=== PATIENT | female | born 1965 | race Caucasian/White ===

== ENCOUNTER 2016-12-28 18:04 | Emergency (ER) | payer OTHER ==
[~2016-12-28] VITALS: Ht 171.4 cm; Wt 99.8 kg
--- NOTE | 2016-12-28 18:31 | ED GI/GU/ABDOMINAL COMPLAINT ---
History of Present Illness General Chief Complaint: Nausea, Vomiting, Diarrhea Stated Complaint: PT HAD DIARRHEA ALL NIGHT Source: patient Exam Limitations: no limitations Allergies Coded Allergies: Penicillins (RASH 12/28/16) Triage Note: 51 YEAR OLD FEMALE STATES THAT SHE HAS HAS DIARHEA SINCE LAST PM. KIDS WERE STICK WITH STOMACH BUG LAST WEEK. TAKING ZOFRAN FOR NAUSEA Triage Nurses Notes Reviewed? yes ? n Is pt currently ? No Onset: Abrupt Duration: hour(s): (24), constant, continues in ED Timing: recent history Quality/Severity: cramping, moderate, severe Location: generalized abdomen No Modifying Factors: none HPI: 51-year-old female comes into emergency room complains of abdominal pain and diarrhea. Symptoms have been going on for the past 24 hours. Patient has had greater than 10 episodes of watery loose stool she reports. Some generalized abdominal pain especially in the lower abdomen. Denies any vomiting but associated nausea. She reports that her kids were sick with similar symptoms. Denies any prior abdominal surgeries. (ADRIÁN VALERIO) Vital Signs & Intake/Output Vital Signs & Intake/Output Vital Signs Date Time Temp Pulse Resp B/P B/P Pulse O2 O2 Flow FiO2 Mean Ox Delivery Rate 12/28 2244 98.0 88 18 140/90 98 Room Air 12/28 1931 Room Air 12/28 1807 98.1 124 18 148/97 99 Room Air ED Intake and Output 12/29 0000 12/28 1200 Intake Total 1000 Output Total Balance 1000 Intake, IV 1000 Patient 220 lb Weight Reconcile Medications Dicyclomine Hydrochloride (Bentyl) 10 MG CAPSULE 2 CAP PO TID abd pain Dicyclomine Hydrochloride (Bentyl) 10 MG CAPSULE 1 CAP PO TID PRN PAIN Loperamide HCl (Imodium A-D) 2 MG CAPSULE 2 CAP PO ONCE DIARRHEA (Reported) Ondansetron (Zofran Odt) 4 MG TAB.RAPDIS 1 TAB SL TID nausea Ondansetron (Zofran Odt) 4 MG TAB.RAPDIS 1 TAB SL TID PRN NAUSEA Ondansetron HCl (Zofran) 4 MG TABLET 1 TAB PO ONCE N/V (Reported) (ESTHER LO) Past History Travel History Traveled to [place] past 21 day No Medical History Any Pertinent Medical History? see below for history Neurological: NONE EENT: NONE Cardiovascular: NONE Respiratory: NONE Gastrointestinal: NONE Hepatic: NONE Renal: NONE Musculoskeletal: NONE Psychiatric: NONE Endocrine: NONE Blood Disorders: NONE BRICKLAYER APPRENTICE/Reproductive: NONE Surgical History Surgical History: non-contributory Psychosocial History Who do you live with Spouse What is your primary language Kuwaiti Tobacco Use: Never used ETOH Use: denies use Illicit Drug Use: denies illicit drug use Family History Hx Contributory? No (ADRIÁN VALERIO) Review of Systems Review of Systems Constitutional: Reports: no symptoms. EENTM: Reports: no symptoms. Respiratory: Reports: no symptoms. Cardiovascular: Reports: no symptoms. GI: Reports: see HPI. Genitourinary: Reports: see HPI. Musculoskeletal: Reports: no symptoms. Skin: Reports: no symptoms. Neurological/Psychological: Reports: no symptoms. Hematologic/Endocrine: Reports: no symptoms. Immunologic/Allergic: Reports: no symptoms. All Other Systems: Reviewed and Negative (ADRIÁN VALERIO) Physical Exam Physical Exam General Appearance: well developed/nourished, alert, awake, mild distress Head: atraumatic, normal appearance Eyes: Bilateral: normal appearance, EOMI. Ears, Nose, Throat, Mouth: hearing grossly normal, moist mucous membrane Neck: normal inspection, full range of motion Respiratory: normal breath sounds, no respiratory distress Cardiovascular: regular rate/rhythm, tachycardia Gastrointestinal: soft, tenderness Back: normal inspection Extremities: normal range of motion Neurologic/Psych: awake, alert, oriented x 3, normal gait, normal mood/affect Skin: intact, normal color Core Measures ACS in differential dx? No Severe Sepsis Present: No Septic Shock Present: No (ADRIÁN VALERIO) Progress Differential Diagnosis: appendicitis, biliary colic, cholecystitis, diverticulitis, gastritis, hernia, ovarian cyst, ovarian torsion, pancreatitis, PID/cervicitis, peptic ulcer, PUD/GERD, perforated viscous, SBO, threatened AB, UTI/pyelo Initial ED EKG: normal intervals, normal p-waves, normal sinus rhythm, rate (97) , nonspecific ST T wave chg (ADRIÁN VALERIO) Plan of Care: Orders Procedure Date/time Status LACTIC ACID 12/29 2147 Complete TROPONIN LEVEL 12/28 1899 Complete HUMAN BETA HCG SCREEN 12/28 1899 Complete LACTIC ACID 12/29 1847 Complete CULTURE,STOOL 04/30 1841 Active C.DIFFICILE 12/28 1840 Active LIPASE 12/28 1829 Complete COMPREHENSIVE METABOLIC PANEL 12/28 1829 Complete CBC WITHOUT DIFFERENTIAL 12/28 1829 Complete EKG 12/28 1829 Active Laboratory Tests 12/28/16 2150: Lactic Acid 0.8 12/28/161899: Lactic Acid 2.3 H 12/28/161899: Anion Gap 18 H, Estimated GFR > 60, BUN/Creatinine Ratio 15.7, Glucose 106 H, Calcium 8.5, Total Bilirubin 0.6, AST 34, ALT 39, Alkaline Phosphatase 61, Troponin I < 0.01, Total Protein 8.1, Albumin 4.5, Globulin 3.6, Albumin/ Globulin Ratio 1.3, Lipase 43, Total Beta HCG NEGATIVE, CBC w Diff NO MAN DIFF REQ, RBC 4.93, MCV 78.1 L, MCH 26.5 L, RDW 14.1, MPV 9.6, Gran % 83.7 H, Lymphocytes % 9.3 L, Monocytes % 6.7, Eosinophils % 0.2, Basophils % 0.1, Absolute Granulocytes 6.1, Absolute Lymphocytes 0.7 L, Absolute Monocytes 0.5, Absolute Eosinophils 0, Absolute Basophils 0, PUBS MCHC 33.9 12/28/161830: Troponin I Cancelled, Total Beta HCG Cancelled 12/28/161829: Urine Color Cancelled, Urine Clarity Cancelled, Urine pH Cancelled, Ur Specific [place] Cancelled, Urine Protein Cancelled, Urine Ketones Cancelled, Urine Nitrite Cancelled, Urine Bilirubin Cancelled, Urine Urobilinogen Cancelled, Ur Leukocyte Esterase Cancelled, Ur Microscopic Cancelled, Urine Hemoglobin Cancelled, Urine Glucose Cancelled, Urine Test Cancelled Microbiology 12/28 1921 STOOL: Clostridium difficile Toxin A & B - RECD 12/28 1921 STOOL: Stool Culture - RECD Case was discussed and signed out to me at 2099 pending repeat lactic acid on repeat evaluation patient reports she is feeling much improved resting, but at this time discussed with her again at length all of her lab results (ESTHER LO) Hand-Off Endorsed To: ESTHER LO Endorsed Time: 2054 Pending: labs (ESTHER LO) Departure Departure Disposition: STILL A PATIENT Condition: Stable Clinical Impression Primary Impression: Diarrhea Secondary Impressions: Hypokalemia Referrals: PATIENT HAS NO PRIMARY CARE DR (PCP/Family) Departure Forms: Customer Survey General Discharge Information (ADRIÁN VALERIO) Departure Additional Instructions: Take Bentyl as prescribed. Drink Gatorade for potassium repletion. Take Zofran ODT as prescribed. These were sent to [facility]. Return immediately if any other concerns worsening symptoms. Contact your primary care doctor for follow- up if symptoms do not improve in the next 48 hours. Please go over all results of today's visit with your primary care doctor. Contact your primary care doctor to let them know you were here in the emergency room. There may be nonspecific findings which may not be related to your visit today here in the emergency room but may require further evaluation and chronic monitoring by your primary care doctor. If you had a laceration today the chance of foreign body always remains. You should follow-up with your primary care doctor for recheck in 3-5 days for a wound check. If you had an x-ray done there is a chance that a fracture could have been missed on initial read and you should follow-up with your primary care doctor for repeat x-rays if symptoms persist. If your blood pressure was elevated here in the emergency room please have rechecked by her primary care doctor within the next 48 hours by your primary care doctor. If you were prescribed a narcotic here in the emergency room or any type of controlled substances you're not allowed to drive while taking this medication or operate any type of heavy machinery. Narcotics can make you feel lightheaded dizziness nausea and can cause constipation. You may need to merchandise pickup/receiving associate a stool softener. Thank you for choosing [facility] emergency room. Please return to the emergency room immediately if you have any other concerns worsening of symptoms. Prescriptions: Current Visit Scripts Dicyclomine Hydrochloride (Bentyl) 2 CAP PO TID #30 CAP Ondansetron (Zofran Odt) 1 TAB SL TID #10 TAB Dicyclomine Hydrochloride (Bentyl) 1 CAP PO TID PRN PAIN #15 CAP Ondansetron (Zofran Odt) 1 TAB SL TID PRN NAUSEA #10 TAB (ESTHER LO) PA/FRONT DESK WORKER Co-Sign Statement Statement: ED Attending supervision documentation- [] I saw and evaluated the patient. I have also reviewed all the pertinent lab results and diagnostic results. I agree with the findings and the plan of care as documented in the PA's/FRONT DESK WORKER's documentation. [x] I have reviewed the ED Record and agree with the PA's/FRONT DESK WORKER's documentation. [] Additions or exceptions (if any) to the PAs/FRONT DESK WORKER's note and plan are summarized below: [] (ABHAY ARMENDARIZ,BRENDON Leigh)
[2016-12-28] MEDS ORDERED: ZOFRAN4 M2 PO (18:32)
[2016-12-28] MEDS ORDERED: IMODIUM A-D2 M2 PO (18:33)
[2016-12-28 19:22] LABS: ABSOLUTE BASOPHIL COUNT 0 /CUMM (0.0-0.2); ABSOLUTE EOSINOPHIL COUNT 0 /CUMM (0.0-0.7); ABSOLUTE GRANULOCYTE CT 6.1 /CUMM (1.4-6.5); ABSOLUTE LYMPH COUNT 0.7 /CUMM (1.2-3.4); ABSOLUTE MONOCYTE COUNT 0.5 /CUMM (0.10-0.60); BASOPHIL % 0.1 % (0.0-2.0); EOSINOPHIL % 0.2 % (0-5); GRANULOCYTE % 83.7 % (42.2-75.2); HEMATOCRIT 38.5 % (37-47); MEAN CORPUSCULAR HGB 26.5 PG (27.0-31.0); MEAN CORPUSCULAR HGB CONC 33.9 G/DL (33.0-37.0); MEAN CORPUSCULAR VOLUME 78.1 FL (81.0-99.0); MEAN PLATELET VOLUME 9.6 FL (7.4-10.4); PLATELET COUNT 205 /CUMM (130-400); RBC DISTRIBUTION WIDTH 14.1 % (11.5-14.5); RED BLOOD CELL CT 4.93 /CUMM (4.20-5.40)
[2016-12-28 19:48] LABS: WHITE BLOOD CELL COUNT 7.3 /CUMM (4.8-10.8)
[2016-12-28] MEDS ORDERED: ZOFRAN ODT4 M1 SL ×2 (20:25→20:53)
[2016-12-28] MEDS ORDERED: BENTYL10 M1 PO ×2 (20:25→20:53)
[2016-12-28 22:44] VITALS: BP 140/90
== END 2016-12-28 22:44 ==
LOC: ERH 18:04
PROVIDERS: Physician Assistant Medical
DX: R19.7 Diarrhea, unspecified (principal); E87.6 Hypokalemia
CPT/HCPCS: 81025; 87045; 93005; 93010; 96374; 96375; J2405